=== PATIENT | female | born 2000 | race African-American/Black ===

== ENCOUNTER 2019-02-26 15:36 | Emergency (ER) | payer SELFPAY ==
[~2019-02-26] VITALS: Ht 162.6 cm; Wt 121.0 kg
[2019-02-26 16:28] VITALS: BP 125/60
== END 2019-02-26 16:28 | disposition home or self-care (01) ==
LOC: ER 15:36
DX: S16.1XXA Strain of muscle, fascia and tendon at neck level, initial encounter (principal); M54.5 Low back pain; M25.572 Pain in left ankle and joints of left foot; M79.10 Myalgia, unspecified site; V49.88XA Car occupant (driver) (passenger) injured in other specified transport accidents, initial encounter; Y93.89 Activity, other specified; Y92.89 Other specified places as the place of occurrence of the external cause; Y99.8 Other external cause status
CPT/HCPCS: 99282